=== PATIENT | female | born 1995 | race African-American/Black ===

== ENCOUNTER 2017-06-27 11:27 | Emergency (ER) | payer OTHER | END 2017-06-27 12:05 | disposition home or self-care (01) | LOC: M ED 11:27 | DX: S60.452A Superficial foreign body of right middle finger, initial encounter (principal); X58.XXXA Exposure to other specified factors, initial encounter; Y92.89 Other specified places as the place of occurrence of the external cause | CPT/HCPCS: 99282 ==

== ENCOUNTER 2018-08-08 23:13 | Emergency (ER) | payer OTHER ==
[~2018-08-08] VITALS: Ht 162.6 cm; Wt 67.3 kg
[2018-08-09] MEDS ORDERED: TERC0.4C2 PV (00:25)
[2018-08-09 00:39] VITALS: BP 116/58
== END 2018-08-09 00:40 | disposition home or self-care (01) ==
LOC: M ED 23:13
DX: O23.599 Infection of other part of genital tract in pregnancy, unspecified trimester (principal)

== ENCOUNTER 2019-03-05 19:41 | Emergency (ER) | payer OTHER ==
[~2019-03-05] VITALS: Ht 162.6 cm; Wt 68.2 kg
[~2019-03-05 19:41] MED LIST: TERC0.4C2 PV
[2019-03-05] MEDS ORDERED: MULTIVITAMIN -ADULT INJECTION 10 ML, THIAMINE INJection 100 MG, FOLIC ACID 1 MG in NS 1... IV ONE (20:30)
[2019-03-05] MEDS ORDERED: NS 1,000 ML IV ONE (20:30)
[2019-03-05 20:39] LABS: BASO # 0.1 10^3/uL (0.0-0.2); BASO % 0.7 % (0.0-1.0); EOS % 0.1 % (0.0-3.0); HEMATOCRIT 42.4 % (36.0-47.0); HEMOGLOBIN 14.2 g/dl (12.0-15.5); LYMPH # 1.9 10^3/uL (1.5-5.0); LYMPH % 12.5 % (24.0-44.0); MEAN CORPUSCULAR HEMOGLOBIN 25.8 pg (27.0-33.0); MEAN CORPUSCULAR HGB CONC 33.5 g/dl (32.0-36.5); MONO # 0.8 10^3/uL (0.0-0.8); MONO % 5.4 % (0.0-5.0); NEUTROPHILS # 12.5 10^3/uL (1.5-8.5); PLATELET COUNT, AUTOMATED 383 10^3/uL (150-450); RED BLOOD COUNT 5.51 10^6/uL (4.00-5.40); WHITE BLOOD COUNT 15.4 10^3/uL (4.0-10.0)
[2019-03-05 21:04] LABS: ALBUMIN 4.3 GM/DL (3.2-5.2); ALT/SGPT 44 U/L (12-78); BILIRUBIN,DIRECT 0.5 MG/DL (0.0-0.2); BLOOD UREA NITROGEN 16 MG/DL (7-18); CALCIUM LEVEL 9.6 MG/DL (8.5-10.1); CARBON DIOXIDE LEVEL 20 MEQ/L (21-32); CHLORIDE LEVEL 101 MEQ/L (98-107); CREATININE FOR GFR 1.01 MG/DL (0.55-1.30); ETHYL ALCOHOL (ETHANOL) < 0.003 % (0.000-0.010); GLOMERULAR FILTRATION RATE > 60.0 (>60); GLUCOSE, FASTING 81 MG/DL (70-100); LIPASE 82 U/L (73-393); POTASSIUM SERUM 4.2 MEQ/L (3.5-5.1); SODIUM LEVEL 136 MEQ/L (136-145); TOTAL PROTEIN 8.4 GM/DL (6.4-8.2)
[2019-03-05] MEDS ORDERED: PHEN30TA37 PO (22:23)
[2019-03-05] MEDS ORDERED: REGL10TA6 PO (22:23)
[2019-03-05] MEDS ORDERED: PHENobarbitaL 30 MG TAB PO ONE (22:30)
[2019-03-05 23:15] VITALS: BP 163/85
== END 2019-03-05 23:28 | disposition home or self-care (01) ==
LOC: M ED 19:41
DX: F10.20 Alcohol dependence, uncomplicated (principal)
CPT/HCPCS: 80048; 80076; 83690; 85025; 96361; 96374; 99284; G0480; J3411

== ENCOUNTER 2019-10-31 21:33 | Emergency (ER) | payer OTHER ==
[~2019-10-31 21:33] MED LIST changes: +PHEN30TA37 PO; +REGL10TA6 PO
[2019-10-31 21:44] VITALS: BP 137/90
[2019-10-31 22:25] LABS: BASO # 0.1 10^3/uL (0.0-0.2); BASO % 0.6 % (0.0-1.0); EOS # 0.1 10^3/uL (0.0-0.5); EOS % 0.9 % (0.0-3.0); HEMATOCRIT 34.6 % (36.0-47.0); HEMOGLOBIN 11.9 g/dl (12.0-15.5); LYMPH # 3.2 10^3/uL (1.5-5.0); MEAN CORPUSCULAR HEMOGLOBIN 28.7 pg (27.0-33.0); MEAN CORPUSCULAR HGB CONC 34.4 g/dl (32.0-36.5); MEAN CORPUSCULAR VOLUME 83.6 fl (80.0-96.0); MONO # 0.8 10^3/uL (0.0-0.8); MONO % 8.1 % (0.0-5.0); NEUTROPHILS # 5.1 10^3/uL (1.5-8.5); NEUTROPHILS % 55.2 % (36.0-66.0); PLATELET COUNT, AUTOMATED 323 10^3/uL (150-450); RED BLOOD COUNT 4.14 10^6/uL (4.00-5.40); WHITE BLOOD COUNT 9.2 10^3/uL (4.0-10.0)
[2019-10-31 22:39] LABS: HCG, SERUM QUALITATIVE NEGATIVE (NEGATIVE)
[2019-10-31 22:59] LABS: ALBUMIN 3.7 GM/DL (3.2-5.2); ALT/SGPT 28 U/L (12-78); BILIRUBIN,DIRECT 0.1 MG/DL (0.0-0.2); BILIRUBIN,TOTAL 0.4 MG/DL (0.2-1.0); BLOOD UREA NITROGEN 9 MG/DL (7-18); CALCIUM LEVEL 8.2 MG/DL (8.5-10.1); CARBON DIOXIDE LEVEL 24 MEQ/L (21-32); CHLORIDE LEVEL 113 MEQ/L (98-107); CREATININE FOR GFR 0.94 MG/DL (0.55-1.30); ETHYL ALCOHOL (ETHANOL) 0.373 % (0.000-0.010); GLOMERULAR FILTRATION RATE > 60.0 (>60); GLUCOSE, FASTING 88 MG/DL (70-100); POTASSIUM SERUM 3.5 MEQ/L (3.5-5.1); SODIUM LEVEL 143 MEQ/L (136-145); TOTAL PROTEIN 6.9 GM/DL (6.4-8.2)
[2019-11-01 01:50] LABS: AMPHETAMINES LEVEL URINE NEGATIVE (NEGATIVE); BARBITURATES URINE NEGATIVE (NEGATIVE); BENZODIAZEPINES URINE NEGATIVE (NEGATIVE); CANNABINOIDS URINE NEGATIVE (NEGATIVE); COCAINE METABOLITE URINE NEGATIVE (NEGATIVE); METHADONE URINE NEGATIVE (NEGATIVE); OPIATES URINE NEGATIVE (NEGATIVE); PHENCYCLIDINE URINE NEGATIVE (NEGATIVE)
[2019-11-01] MEDS ORDERED: NALT50TA4 PO (17:07)
== END 2019-11-01 04:47 | disposition home or self-care (01) ==
LOC: M ED 21:33 → EDBD 21:33 → M ED 11-01 04:47
DX: F10.129 Alcohol abuse with intoxication, unspecified (principal)
CPT/HCPCS: 80048; 80076; 80307; 84443; 84703; 85025; 93041; 94760; 99284; G0480

== ENCOUNTER 2019-11-01 16:58 | Emergency (ER) | payer OTHER ==
[~2019-11-01] VITALS: Ht 162.6 cm; Wt 67.1 kg
[2019-11-01] MEDS ORDERED: NALT50TA4 PO (17:07)
[2019-11-01 19:03] LABS: HEMATOCRIT 36.5 % (36.0-47.0); HEMOGLOBIN 12.5 g/dl (12.0-15.5); MEAN CORPUSCULAR HEMOGLOBIN 28.3 pg (27.0-33.0); MEAN CORPUSCULAR HGB CONC 34.2 g/dl (32.0-36.5); MEAN CORPUSCULAR VOLUME 82.8 fl (80.0-96.0); PLATELET COUNT, AUTOMATED 377 10^3/uL (150-450); RED BLOOD COUNT 4.41 10^6/uL (4.00-5.40); WHITE BLOOD COUNT 8.7 10^3/uL (4.0-10.0)
[2019-11-01 19:24] LABS: AMPHETAMINES LEVEL URINE NEGATIVE (NEGATIVE); BARBITURATES URINE NEGATIVE (NEGATIVE); BENZODIAZEPINES URINE NEGATIVE (NEGATIVE); CANNABINOIDS URINE NEGATIVE (NEGATIVE); COCAINE METABOLITE URINE NEGATIVE (NEGATIVE); METHADONE URINE NEGATIVE (NEGATIVE); OPIATES URINE NEGATIVE (NEGATIVE); PHENCYCLIDINE URINE NEGATIVE (NEGATIVE)
[2019-11-01 19:33] LABS: HCG, SERUM QUALITATIVE NEGATIVE (NEGATIVE)
[2019-11-01 19:37] LABS: ACETAMINOPHEN LEVEL < 2.0 UG/ML (10.0-30.0); ALT/SGPT 45 U/L (12-78); BILIRUBIN,DIRECT 0.1 MG/DL (0.0-0.2); BILIRUBIN,TOTAL 0.4 MG/DL (0.2-1.0); BLOOD UREA NITROGEN 7 MG/DL (7-18); CALCIUM LEVEL 8.8 MG/DL (8.5-10.1); CARBON DIOXIDE LEVEL 24 MEQ/L (21-32); CHLORIDE LEVEL 111 MEQ/L (98-107); CREATININE FOR GFR 0.92 MG/DL (0.55-1.30); ETHYL ALCOHOL (ETHANOL) 0.239 % (0.000-0.010); GLOMERULAR FILTRATION RATE > 60.0 (>60); GLUCOSE, FASTING 94 MG/DL (70-100); POTASSIUM SERUM 4.1 MEQ/L (3.5-5.1); SALICYLATE LEVEL 2.6 MG/DL (5.0-30.0); SODIUM LEVEL 145 MEQ/L (136-145); THYROID STIMULATING HORMONE 0.842 uIU/ML (0.358-3.740); TOTAL PROTEIN 7.4 GM/DL (6.4-8.2)
[2019-11-01 20:14] VITALS: BP 136/92
== END 2019-11-01 20:34 | disposition home or self-care (01) ==
LOC: M ED 16:58
DX: F10.129 Alcohol abuse with intoxication, unspecified (principal); F17.200 Nicotine dependence, unspecified, uncomplicated; Z79.899 Other long term (current) drug therapy
CPT/HCPCS: 80048; 80076; 80307; 84443; 84703; 85027; 99284; G0480

== ENCOUNTER 2020-01-31 20:47 | Inpatient (IN) | payer OTHER, SELFPAY ==
[~2020-01-31] VITALS: Ht 162.6 cm; Wt 63.6 kg
[~2020-01-31 20:47] MED LIST changes: +NALT50TA4 PO
[2020-01-31 21:37] LABS: MEAN CORPUSCULAR HEMOGLOBIN 27.1 pg (27.0-33.0); MEAN CORPUSCULAR HGB CONC 34.9 g/dl (32.0-36.5); MEAN CORPUSCULAR VOLUME 77.6 fl (80.0-96.0); PLATELET COUNT, AUTOMATED 431 10^3/uL (150-450); RED BLOOD COUNT 5.54 10^6/uL (4.00-5.40); WHITE BLOOD COUNT 8.9 10^3/uL (4.0-10.0)
[2020-01-31 22:03] LABS: AMPHETAMINES LEVEL URINE NEGATIVE (NEGATIVE); BARBITURATES URINE NEGATIVE (NEGATIVE); BENZODIAZEPINES URINE NEGATIVE (NEGATIVE); CANNABINOIDS URINE NEGATIVE (NEGATIVE); COCAINE METABOLITE URINE NEGATIVE (NEGATIVE); METHADONE URINE NEGATIVE (NEGATIVE); OPIATES URINE NEGATIVE (NEGATIVE); PHENCYCLIDINE URINE NEGATIVE (NEGATIVE)
[2020-01-31 22:17] LABS: ACETAMINOPHEN LEVEL < 2.0 UG/ML (10.0-30.0); ALBUMIN 4.3 GM/DL (3.2-5.2); ALT/SGPT 58 U/L (12-78); BILIRUBIN,DIRECT 0.3 MG/DL (0.0-0.2); BILIRUBIN,TOTAL 1.2 MG/DL (0.2-1.0); BLOOD UREA NITROGEN 10 MG/DL (7-18); CALCIUM LEVEL 8.8 MG/DL (8.5-10.1); CARBON DIOXIDE LEVEL 24 MEQ/L (21-32); CHLORIDE LEVEL 104 MEQ/L (98-107); CREATININE FOR GFR 0.92 MG/DL (0.55-1.30); ETHYL ALCOHOL (ETHANOL) 0.374 % (0.000-0.010); GLOMERULAR FILTRATION RATE > 60.0 (>60); GLUCOSE, FASTING 86 MG/DL (70-100); HCG, SERUM QUALITATIVE NEGATIVE (NEGATIVE); POTASSIUM SERUM 4.1 MEQ/L (3.5-5.1); SODIUM LEVEL 140 MEQ/L (136-145); TOTAL PROTEIN 7.9 GM/DL (6.4-8.2)
[2020-02-01] MEDS ORDERED: MELA3TAB30 PO (07:12)
[2020-02-01] MEDS ORDERED: BUSP5TA PO (07:12)
[2020-02-01] MEDS ORDERED: ESCI10TA2 (07:12)
[2020-02-01] MEDS ORDERED: LORazepam 2 MG TAB PO PRN ×2 (07:30→11:15)
[2020-02-01] MEDS ORDERED: THIAMINE 100 MG TAB PO SCH (09:00)
[2020-02-01] MEDS ORDERED: FOLIC ACID 1 MG TAB PO SCH (09:00)
[2020-02-01] MEDS ORDERED: MULTIVITAMINS/MINERALS THERAP 1 TAB PO SCH (09:00)
[2020-02-01] MEDS ORDERED: ALPRAZolam 0.5 MG TAB PO ONE (09:45)
[2020-02-01] MEDS ORDERED: MOM 30ML SUSPENSION UDC PO PRN (11:15)
[2020-02-01] MEDS ORDERED: MAALOX 30 ML SUSP *UDC PO PRN (11:15)
[2020-02-01] MEDS ORDERED: IBUPROFEN 400 MG TAB PO PRN (11:15)
[2020-02-01 14:45] VITALS: BP 139/92
[2020-02-01] MEDS: busPIRone 5 MG TAB PO SCH (17:32)
[2020-02-01 20:00] VITALS: BP 139/92
[2020-02-01] MEDS: THIAMINE 100 MG TAB PO SCH (20:26)
[2020-02-01] MEDS: traZODone 50 MG TAB PO PRN (21:22)
[2020-02-02 06:43] VITALS: BP 126/88
[2020-02-02] MEDS ORDERED: INFLUENZA QUADRIVALENT PF VACCINE 0.5ML SYRINGE IM ONE (09:00)
[2020-02-02] MEDS: FOLIC ACID 1 MG TAB PO SCH (09:52)
[2020-02-02] MEDS: MULTIVITAMINS/MINERALS THERAP 1 TAB PO SCH (09:53)
[2020-02-02] MEDS: THIAMINE 100 MG TAB PO SCH ×2 (09:54→20:33)
[2020-02-02] MEDS: busPIRone 5 MG TAB PO SCH (09:54)
--- NOTE | 2020-02-02 10:45 | MHHPEPDOC ---
General Date Of Admission: Feb 01, 2020 Legal Status: 9.39 Chief Complaint "I was drinking. History of Present Illness HISTORY OF THE PRESENT ILLNESS: Patient is a 24 -year-old , female, who presented to [facility] after becoming intoxicated, she'd made suicidal statements during this time and was admitted. She reported that she had been doing well up until she started drinking again, she recent been discharged from the due to a DWI, she reported that her alcohol use is a significant problem for her depression, she reports she does well when she does not drink. She's plan moving to [place] to be with her family Psychiatric Review of Systems Depression (2 or more weeks): depressed mood, insomnia/hypersomnia Bridgette (4 or more days of): denies Psychosis: denies PTSD: denies Anxiety: situational anxiety Past Psychiatric History Previous Psychiatric Diagnosis: anxiety. Previous Psychiatric Admissions:. Denies. Suicide Attempts: denies. Psychiatric Follow-up: none. Psychiatric medications: denies, using naltrexone for alcohol use. Has been prescribed buspirone Past Medical History Medical Problems Noncontributory Family Medical/Psychiatric HX Medical Problems Noncontributory Addiction History alcohol Social History Childhood: grew up in [facility]. Abuse/Trauma: some trauma the past. Current Living Situation: living alone. Education: high school education. Employment: unemployed, currently discharge from the . Social Support: support primarily in [place]. Legal: DWI. Marital: unmarried. Mental Status Examination General Appearance: well groomed Build: average Demeanor: average Eye Contact: average Activity: average Behavior: cooperative Speech: clear Mood: euthymic Affect: full Thought Process: logical/linear Thought Content (Delusions): none reported, denies SI, HI, AVH Thought Content (Other): none reported Perception (Hallucinations): none reported Cognition (Impairment of): none reported Cognition(Intelligence Est.): above average Oriented: Oriented times three Insight: fair Judgment: Fair Psychosis: Denies Assessment Patient presents after becoming quite intoxicated. It appears that alcohol is the significant salient problem in her presentation, she seems you've resolved quite well without much intervention suggesting that she will likely need to have alcohol use prevention a primary part of her treatment Problem List Problems: (1) Depression with suicidal ideation Status: Resolved Response to Treatment: Stable Problem Text: Appears to do well, once the alcohol has been removed, no suicidal thoughts. (2) Alcohol abuse with intoxication Status: Chronic Response to Treatment: Uncontrolled Problem Text: Will consider disulfiram as an outpatient Initial Treatment Plan 1. Patient was admitted on a [9.39] status. 2. Complete history was obtained. 3. With patients permission, family will be contacted and database will be expanded. 4. Patients medication regimen will be reviewed and changed accordingly. 5. Patient will be provided with protected environment. 6. Patient will be treated with individual, group, and milieu therapies. 7. Patient will receive supportive psych-education. 8. Discharge planning will commence immediately. 9. Outpatient follow-up treatment will be strongly recommended. 10. The initial treatment plan will focus initially on: * Substance use * Risk for suicide. ESTIMATED LENGTH OF STAY: - DAYS. TIME SPENT COUNSELING AND COORDINATING INITIAL CARE: minutes. Vital Signs Vital Signs Date Time Temp Pulse Resp B/P (MAP) Pulse Ox O2 Delivery O2 Flow Rate FiO2 02/02/20 06:43 98.1 84 16 126/88 (101) 97 Room Air Medications Scheduled Buspirone HCl (Buspirone HCl) 5 Mg Tablet, 5 MG PO DAILY, (Reported) Melatonin (Melatonin) 3 Mg Tablet, 6 MG PO QHS, (Reported) Allergies Coded Allergies: No Known Allergies (Unverified , 08/08/18) CARLA JAMES DO Feb 02, 2020 10:45
[2020-02-02 14:02] VITALS: BP 122/87
[2020-02-02 17:04] VITALS: BP 124/80
[2020-02-02 17:27] VITALS: BP 124/80
--- NOTE | 2020-02-02 18:39 | HPEPDOC ---
[facility] Medical History & Physical Date of Admission Feb 02, 2020 Date of Service: Feb 02, 2020 History and Physical CHIEF COMPLAINT: Medical evaluation HISTORY OF PRESENT ILLNESS: 24-year-old female past medical history anxiety and depression who is admitted to psychiatric unit after police was called because she was having a cardiac event with her "child father" and she threatened that she wanted to hurt herself. So police brought her to the hospital and she was admitted to the inpatient psychiatric unit. Patient has no active complaints or now and says she feels well. I am asked to provide a medical assessment of patient admitted to the psychiatric unit. My assessment is limited to medical problems and does not address any psychiatric problems which is deferred to the in-house psychiatrist. PAST MEDICAL HISTORY: Anxiety Depression PAST SURGICAL HISTORY: Left index finger fracture SOCIAL HISTORY: Endorses drinking alcohol on and off every few weeks Denies tobacco use Denies illicit drug use FAMILY HISTORY: Mother has a history of hypertension ALLERGIES: Please see below. REVIEW OF SYSTEMS: 10 point review of systems complete all negative otherwise stated in HPI HOME MEDICATIONS: Please see below. PHYSICAL EXAMINATION: Constitutional: Awake and alert, in no apparent distress ENT: Sclera are clear Respiratory: Lungs CTA bilaterally. No respiratory distress. Cardiovascular: RRR S1 and S2 are normal, no murmur Gastrointestinal: Abdomen is soft, non distended, non tender Musculoskeletal: No edema. Neurologic: No focal neurological deficit. Mental Status: A&O x3, normal affect Skin: Warm, dry LABORATORY DATA: See below. IMAGING: None MICROBIOLOGY: Please see below. ASSESSMENT/PLAN 24-year-old female with anxiety and depression admitted to psychiatric unit after reporting wanting to hurt herself I was asked to see the patient for medical evaluation # High blood pressure without diagnosis of hypertension: Could be related to anxiety latest readings are normal. Counseled on dieting and lifestyle modifications. A [facility] Hospitalist Vital Signs Vital Signs Date Time Temp Pulse Resp B/P (MAP) Pulse Ox O2 Delivery O2 Flow Rate FiO2 02/02/20 17:27 89 124/80 02/02/20 17:04 99.0 16 02/02/20 06:43 97 Room Air Home Medications Scheduled Buspirone HCl (Buspirone HCl) 5 Mg Tablet, 5 MG PO DAILY Melatonin (Melatonin) 3 Mg Tablet, 6 MG PO QHS Allergies Coded Allergies: No Known Allergies (Unverified , 08/08/18) A-FIB/CHADSVASC A-FIB History Current/History of A-Fib/PAF?: No YOUSEF,DICKSON Cordero MD Feb 02, 2020 18:39
[2020-02-02] MEDS: traZODone 50 MG TAB PO PRN (20:33)
[2020-02-03 06:23] VITALS: BP 144/88
[2020-02-03] MEDS: THIAMINE 100 MG TAB PO SCH (08:51)
[2020-02-03] MEDS: MULTIVITAMINS/MINERALS THERAP 1 TAB PO SCH (08:51)
[2020-02-03] MEDS: FOLIC ACID 1 MG TAB PO SCH (08:51)
[2020-02-03] MEDS: busPIRone 5 MG TAB PO SCH (08:51)
--- NOTE | 2020-02-03 09:46 | MHDSPDOC ---
[facility] Discharge Summary Discharge Summary DATE OF ADMISSION: Feb 01, 2020 at 11:12 DATE OF DISCHARGE: Feb 03, 2020 at 12:27 DISCHARGE DIAGNOSES: Unspecified depressive disorder Alcohol use disorder unspecified CONSULTANTS INVOLVED:[ None (basic hospitalist screening)] REASON FOR ADMISSION & TREATMENT AND PROGRESS ON THE UNIT : The patient was admitted to the inpatient mental health unit and resumed on her home medications of BuSpar, she was placed on a CIWA protocol due to alcohol use, she recovered quite well over a 3 to 48 hours. It appeared that alcohol informed a major difficulty for her she reported struggling with alcoholism and lack of support since being discharged from the . She reports that she was actually in the process prior to being brought in to move back to [place] to be around her family and have better support. She did well in the unit engaged and was friendly, she was open to the disulfiram and advanced safety planning with her sister to pick her up and to help transport her back as well as have her grandmother be her sober support person who should be living with to administer her disulfiram. She had good insight and generally did well DISCHARGE ASSESSMENT[improved] Legal status considerations: The patient at the time of discharge did not meet criteria for involuntary admission/extension due to having a [normal] mental status exam, [fair] insight into the situation, They are engaged in the discharge process, as well as being friendly and amenable in behavioral control and havent been engaging in any observed concerning behavior or ideation recently. They decline voluntary extension/admission at this time and must be discharged in good [place], as Im unable to make a case for holding the patient against their will. They may have historical risk factors of admissions and other interactions with psychiatry however, those are not modifiable from a clinical perspective. The patient will need to be discharged in good [place]. MENTAL STATUS EXAMINATION ON DISCHARGE: [General: Well dressed with good hygiene Speech: Spontaneous and fluid Thought processes: Linear and logical Thought content: Future orientated Abstract reasoning, and computation: Intact Description of associations: Intact Description of abnormal or psychotic thoughts:Denies any suicidal or homicidal ideation. Denies any auditory or visual hallucinations. Does not appear to be responding to internal stimuli. Does not appear to be endorsing any bizarre or paranoid ideation. Judgment: fair Insight: fair Orientation: Alert and orientated 3 Recent and remote memory: Intact Attention span and concentration: Intact Fund of knowledge: Adequate Mood: "okay" Affect: Euthymic with a full range] PLAN/FOLLOWUP ARRANGEMENTS: Follow up appointments made (PCP and MH in 5 days of D/C date) and safety plan completed. Safety Planning aspects completed prior to discharge [Medication supplies limited to 7 days with 4 refills to prevent accumulation to OD] [Family contact completed, educated on safe practices, instructed on removal and mitigation of dangerous means] [RN reviewed crisis hotline information and other aspects to empower patient to access care in interim before next appointment.] The amount of time spent in the coordination of care for this patient was approximately 30 minutes. Vital Signs/I&Os Vital Signs Date Time Temp Pulse Resp B/P (MAP) Pulse Ox O2 Delivery O2 Flow Rate FiO2 02/03/20 06:23 99.2 72 18 144/88 (106) 98 Room Air Medications Scheduled Buspirone HCl (Buspirone HCl) 5 Mg Tablet, 5 MG PO DAILY, (Reported) Disulfiram (Disulfiram) 250 Mg Tablet, 1 TAB PO DAILY for alcohol for 30 Days, #30 Melatonin (Melatonin) 3 Mg Tablet, 6 MG PO QHS, (Reported) Allergies Coded Allergies: No Known Allergies (Unverified , 08/08/18) CARLA JAMES DO Feb 03, 2020 09:46
[2020-02-03] MEDS ORDERED: DISU250T PO (09:55)
== END 2020-02-03 12:27 | disposition home or self-care (01) | DRG 754 ==
LOC: M ED 20:47 → M ED INP 02-01 11:12 → M PSY 02-01 14:40
PROVIDERS: ADMIT Psychiatry & Neurology Addiction Medicine; ATTEND Psychiatry & Neurology Addiction Medicine
DX: F32.9 Major depressive disorder, single episode, unspecified (principal); R45.851 Suicidal ideations; F10.129 Alcohol abuse with intoxication, unspecified; Z79.899 Other long term (current) drug therapy; Z20.828 Contact with and (suspected) exposure to other viral communicable diseases